=== PATIENT | female | born 1975 | race African-American/Black ===

== ENCOUNTER 2023-01-12 09:34 | Outpatient (AMB) | payer OTHER, SELFPAY ==
[2023-01-12 09:55] VITALS: BMI 29.0
--- NOTE | 2023-01-12 09:55 | MHC.OFFVIS ---
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 States she is in the . States her pain increase about 3 years ago due to prolong walking. States on her left side of her lower back she is having radiating pain to her Hamstring. Feels soreness and is triggered with prolong sitting and working out. Patient is currently doing P.T with little improvement. Allergies ibuprofen Adverse Reaction (Verified 01/12/23 09:57) ulcers [facility] HPI Comments History of Present Illness Details Per notes from [facility], patient may have had a left hamstring tear 3 years ago in [place]. Has the same pain now per patient, pointing to left proximal insertion. Tingling on right lower leg, usually when she is sitting. But she points to bilateral SI joint. When she lotions right thigh, feels numb, noted last 3 weeks ago. No bladder/bowel changes. Was on right boot for possible ankle sprain. She is in , has to work out, speed walks. Treatment done so far: NSAIDs therapy - last 3 weeks in ATI injection - trigger point for her back and shoulder area, in [place] Wears a knee sleeve - which seems to cause pain on back of her knee [facility] Medical History (Updated 01/12/23 @ 10:26 by Lexi Guallpa MD) Hamstring tear (Updated 01/12/23 @ 09:57 by CHRIS Ibrahim) Patient Tobacco Use Status: Never used Tobacco Current occupational status: employed Current occupation: rt hand / active in Review of Systems Const All systems reviewed & are unremarkable except as noted in HPI and below Physical Exam Vital Signs: BMI result Body Mass Index 29.0 Constitutional: Patient appears to be in no acute distress, well nourished and well developed. Patient was appropriately conversant and oriented. Good historian. MSK: No specific abnormalities found on inspection of the spine and all extremities. No pain with palpation over the lumbar area. Tender bilateral SI joints. Tender on left GT. Tender on left ischial tuberosity. Tender along the ITB band left. No obvious tear seen on hamstring. Lumbar ROM was full. Bilateral hip, knee and ankle ROM WNL. No ligamentous laxity or crepitance. No increased effusion. Straight-leg raising test negative. FABERE test positive left. Joaquim test is negative. Strength is 5/5 in all muscle groups tested. No increased tone noted. Neurological: Neurologic examination of the upper and lower extremities was nonfocal with intact sensation, muscle stretch reflexes and without focal motor deficits . Shepherd?s negative bilaterally. Babinski was down going bilaterally. Clonus was negative. Gait is non-antalgic without loss of balance. Patient was able to perform heel walk and toe walk. Results Reviewed Results Reviewed: X-ray done at [facility] reported preserved disc spaces and facet arthropathy. I reviewed records from the following: [facility] walk-in clinic Assessment & Plan Assessment & Plan (1) Sacroiliac joint dysfunction of both sides: Code(s): M53.3 - Sacrococcygeal disorders, not elsewhere classified (2) Trochanteric bursitis of left hip: Code(s): M70.62 - Trochanteric bursitis, left hip (3) Ischial bursitis of left side: Code(s): M70.72 - Other bursitis of hip, left hip (4) Hamstring tear: Code(s): S76.319A - Strain of muscle, fascia and tendon of the posterior muscle group at thigh level, unspecified thigh, initial encounter Plan Focal pain on SI joints, left GT and left ischial tuberosity, with referral pain on gluteus and ITB. No signs of current hamstring tear. Discussed with patient. Low suspicion for lumbar radiculopathy but will continue to evaluate/observe. Will refer her to Pain Management for possible bilateral SI joint injection under image guidance. We can do a left trochanteric injection here, will schedule for next week. We would consider future ischial tuberosity injection in the future, after the two above. Assessment and plan discussed with patient, and patient was agreeable. All questions were answered thoroughly. Lexi Guallpa MD, GUANAKO Board Certified, [place] Board of Physical Medicine and Rehabilitation (ABPMR) Board Certified, [place] Board of Electrodiagnostic Medicine (ABEM) Orders: Referrals Pain Management Referral M53.3 - Sacrococcygeal disorders, not elsewhere classified Coding Level of Care Code New Pt Level 4 (57672) Diagnoses Sacroiliac joint dysfunction of both sides M53.3 Trochanteric bursitis of left hip M70.62 Ischial bursitis of left side M70.72 Hamstring tear S76.156W
== END 2023-01-12 10:32 | disposition home or self-care (01) ==
PROVIDERS: PCP Physician Assistant; Visit Provider Physical Medicine & Rehabilitation
DX: M53.3 Sacrococcygeal disorders, not elsewhere classified (principal); M70.62 Trochanteric bursitis, left hip; M70.72 Other bursitis of hip, left hip; S76.319A Strain of muscle, fascia and tendon of the posterior muscle group at thigh level, unspecified thigh, initial encounter
CPT/HCPCS: 99204

== ENCOUNTER → 2023-01-12 09:34 | Outpatient (BNVA) | payer OTHER, SELFPAY | PROVIDERS: PCP Physician Assistant; Visit Provider Physical Medicine & Rehabilitation | DX: M53.3 Sacrococcygeal disorders, not elsewhere classified (principal); M70.62 Trochanteric bursitis, left hip; M70.72 Other bursitis of hip, left hip; Z56.82 Military deployment status; Z57.8 Occupational exposure to other risk factors | CPT/HCPCS: 99202 ==

== ENCOUNTER 2023-01-19 12:02 | Outpatient (AMB) | payer OTHER, SELFPAY ==
--- NOTE | 2023-01-19 12:04 | MHC.OFFVIS ---
Intake Vital Signs 01/19/23 12:04 Height 5 ft 6 in Intake Visit Reasons: ov- left hip injection Intake Note: Nancie is a 47 year old female who presents today for a left hip injection. Allergies ibuprofen Adverse Reaction (Verified 01/19/23 12:11) ulcers HPI HPI Comments History of Present Illness Details Here for scheduled left greater trochanter injection PFSH Medical History (Updated 01/12/23 @ 10:26 by Lexi Guallpa MD) Hamstring tear Social History (Updated 01/12/23 @ 09:57 by Diana Chaidez [facility]) Patient Tobacco Use Status: Never used Tobacco Current occupational status: employed Current occupation: rt hand / active in Office Procedures Joint Injection/Drain Joint Injection/Drain Details: Consent obtained. Patient lies on unaffected side with lower leg flexed and upper leg extended. Tender area over the greater trochanter is identified and marked. Area is cleansed with betadine solution. Using a [25] gauge needle, [3 ml] of 2% lidocaine is injected, with the needle perpendicular to center of tender area. Then, using a spinal needle, [40 mg] Kenalog is injected perpendicularly at center of tender area and slightly touching bone of greater trochanter. Patient tolerated procedure well without complications. Post-injection instructions given. Primary Site: other (Left greater trochanter) Injected: 40 mg of, Kenalog and with 3 mL of (2% lidocaine) Procedure: The patient tolerated the procedure well Coding 38850 - Large joint Procedure code (CPT) selection complete Assessment & Plan Assessment & Plan (1) Trochanteric bursitis of left hip: Code(s): M70.62 - Trochanteric bursitis, left hip Plan Patient tolerated procedure well. Post-injection instructions given. Await pain management referral for SI joint injection. Assessment and plan discussed with patient, and patient was agreeable. All questions were answered thoroughly. Follow-up after injection from pain management. Lexi Guallpa MD, GUANAKO Board Certified, [place] Board [employer] Physical Medicine and Rehabilitation (ABPMR) Board Certified, [place] Board of Electrodiagnostic Medicine (ABEM) Orders: Orders AMB Joint Injection/Aspiration Today M70.62 - Trochanteric bursitis, left hip Coding Level of Care Code Procedure Only Diagnoses Trochanteric bursitis of left hip M70.62 CPT Codes Coding - 96912 Large joint: 08991 - Large joint ([id number])
== END 2023-01-19 12:28 | disposition home or self-care (01) ==
PROVIDERS: PCP Physician Assistant; Visit Provider Physical Medicine & Rehabilitation
DX: M70.62 Trochanteric bursitis, left hip (principal)
CPT/HCPCS: 20610

== ENCOUNTER → 2023-01-19 12:02 | Outpatient (BNVA) | payer OTHER, SELFPAY | PROVIDERS: PCP Physician Assistant; Visit Provider Physical Medicine & Rehabilitation | DX: M70.62 Trochanteric bursitis, left hip (principal) | CPT/HCPCS: 20610; J3301 ==

== ENCOUNTER 2023-03-22 06:21 | Outpatient (REF) | payer OTHER, SELFPAY ==
--- NOTE | ~2023-03-22 | FL_ITS ---
EXAMINATION: XR FLUOROSCOPY WITH IMAGES CLINICAL INFORMATION: Sacrococcygeal disorders. COMPARISON: None available. TECHNIQUE: Fluoroscopy Supervised By: Hui Almonte APRN CNP Fluoroscopy Time: 0.2 minutes. Cumulative Dose: 2.32 mGy. DAP: 0.0404 Gycm2. Images: 2. FINDINGS: There are 2 digital images obtained with contrast overlying the SI joints for pain management. No lytic process seen. FL/FL guidance in treatment room IMPRESSION: Fluoroscopy was provided to referring physician for SI joint pain management.
== END 2023-03-22 06:22 | disposition home or self-care (01) ==
LOC: CF 06:21
PROVIDERS: Visit Provider Anesthesiology
DX: M53.3 Sacrococcygeal disorders, not elsewhere classified (principal)
CPT/HCPCS: 27096; J2795; Q9967

== ENCOUNTER 2023-03-22 12:59 | Outpatient (AMB) | payer OTHER, SELFPAY ==
--- NOTE | 2023-03-22 12:57 | MHC.OFFVIS ---
Intake Vital Signs 03/22/23 13:04 03/22/23 13:05 Height 5 ft 6 in 5 ft 6 in Weight 180 lb 180 lb BMI 29.0 29.0 BP 142/90 H 122/90 H Blood Pressure Location Lt brachial Lt brachial Position Sitting Sitting Respiration 18 18 Pulse 92 80 Pulse Source Pulse Oximeter Pulse Oximeter Pulse Oximetry (%) 100 100 Oxygen Delivery Method Room Air Room Air Comment pre-op post-op Intake Visit Reasons: BILATERAL DIAGNOSTIC SIJ INJECTIONS Allergies ibuprofen Adverse Reaction (Verified 03/22/23 13:05) ulcers [facility] Medical History (Updated 01/12/23 @ 10:26 by Lexi Guallpa MD) Hamstring tear Social History (Updated 01/12/23 @ 09:57 by CHRIS Ibrahim) Patient Tobacco Use Status: Never used Tobacco Current occupational status: employed Current occupation: rt hand / active in Physical Exam Vital Signs: Last Vital Signs Pulse 80 03/22/23 13:05 Resp 18 03/22/23 13:05 BP 122/90 H 03/22/23 13:05 Pulse Ox 100 03/22/23 13:05 Oxygen Delivery Method Room Air 03/22/23 13:05 BMI result Body Mass Index 29.0 Assessment & Plan Assessment & Plan (1) Sacroiliac joint dysfunction of both sides: Code(s): M53.3 - Sacrococcygeal disorders, not elsewhere classified Plan: Bilateral diagnostic sacroiliac joint injection. Informed consent was explained thoroughly to the patient. All questions about benefits and risks for the procedure were answered. Patient came to the operating room and was positioned prone on the operating table with the pillow under the pelvis. Time out was performed delineating name and of the patient, allergies and the nature of the procedure. The lower back and buttocks of the patient were prepped with ChloraPrep prepped and draped with sterile utility towels. C-arm was brought over the operating field and sq picture of patient's pelvis was demonstrated on the screen. For the right joint tilting C-arm contralateral to the site of the joint the most posterior portion of the joints was superimposed with anterior silhouette of the joint. Skin was injected in the projection of the joint slightly medial to the location of the joint with 25 gauge 1/2 inch needle using local lidocaine 2% .After that 22 gauge 3 and 1/2 inch needle was driven to the right joint in tunnel vision fashion. When needle entered the joint capsule injection of the contrast was performed demonstrating intra-articular and minimally periarticular spread of the contrast. After that 4 cc. of ropivacaine 0.5% was injected into the joint. Upon completion of the injections the needle was removed Sterile dressing was applied. Upon completion of the injection patient was taken outside of the operating room to the recovery room where recovered uneventfully. Orders: Orders FL guidance in treatment room Today M53.3 - Sacrococcygeal disorders, not elsewhere classified Coding Level of Care Code Procedure Only Diagnoses Sacroiliac joint dysfunction of both sides M53.3
[2023-03-22 13:04] VITALS: BP 142/90; PULSE 92; RESP 18; O2SAT 100; BMI 29.0
[2023-03-22 13:05] VITALS: BP 122/90; PULSE 80; RESP 18; O2SAT 100; BMI 29.0
== END 2023-03-22 14:00 | disposition home or self-care (01) ==
LOC: HO.PMCPRC 12:59
PROVIDERS: PCP Physician Assistant; Visit Provider Anesthesiology
DX: M53.3 Sacrococcygeal disorders, not elsewhere classified (principal)
CPT/HCPCS: 27096

== ENCOUNTER 2023-03-28 13:14 | Outpatient (AMB) | payer OTHER, SELFPAY ==
--- NOTE | 2023-03-28 13:29 | MHC.OFFVIS ---
Intake Vital Signs 03/28/23 13:38 Height 5 ft 6 in Weight 191 lb 8 oz BMI 30.9 BP 142/86 H Blood Pressure Location Lt brachial Position Sitting Respiration 17 Pulse 82 Pulse Source Pulse Oximeter Pulse Oximetry (%) 99 Oxygen Delivery Method Room Air Intake Visit Reasons: BILATERAL DIAGNOSTIC SIJ INJECTIONS/03/22/23 Intake Note: Patient comes in for post-op appointment. Reports pain 04/30. Allergies ibuprofen Adverse Reaction (Verified 03/28/23 13:39) ulcers HPI HPI Comments History of Present Illness Details Nancie is very pleasant 47 years old female who presents in my office with complains on 3 similarly separate pain generators. She complains on pain across the lower back which was diagnosed at sacroiliitis in the office of Dr. Tim Nieves. 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 She reports that she can not sleep normally because of her pain but she can not do activities of daily living she can not take care of herself and she can not function normally. She reports that she is working full-time. She is self mobile. The pain is aggravated by walking. She reports in terms of tissue damage her pain is dull sore hurting aching heavy tight squeezing tearing sensation. She had physical therapy DecemberJanuary 2023 without pain relief she had massage therapy December 2022 without pain relief she had occupational therapy 2022 without pain relief. She went for bilateral sacroiliac joint injection and results for the sacroiliac joint pain is quite impressive. She reported that she had 2 days of complete absence of the pain in the projection of the sacroiliac joints. However the patient stated today that sacroiliac joint pain is not the major pain generator for her. She reported to me that right subcostal pain is more important for her because it is aching nagging pain and it prevents her from performing her duties. Past medical history is denied, no past surgical history, she denies smoking cigarettes occasionally drinks alcohol denies caffeinated beverages denies recreational drugs. PENDING SALE TO [facility] Medical History (Updated 03/28/23 @ 14:07 by Mark Rodriguez MD) Hamstring tear Social History (Updated 01/12/23 @ 09:57 by CHRIS Ibrahim) Patient Tobacco Use Status: Never used Tobacco Current occupational status: employed Current occupation: rt hand / active in Review of Systems Const Reports no additional complaints Card Reports no additional complaints Resp Reports no additional complaints GI Reports no additional complaints Reports no additional complaints Musc Reports as per HPI Neuro Reports no additional complaints Psych Reports no additional complaints Physical Exam Vital Signs: Last Vital Signs Pulse 82 03/28/23 13:38 Resp 17 03/28/23 13:38 BP 142/86 H 03/28/23 13:38 Pulse Ox 99 03/28/23 13:38 Oxygen Delivery Method Room Air 03/28/23 13:38 BMI result Body Mass Index 30.9 Constitutional: Patient appears to be in no acute distress, well nourished and well developed. Patient was appropriately conversant and oriented. Good historian. MSK: Tenderness on palpation in projection of the right subcostal area. No specific abnormalities found on inspection of the spine and all extremities. No pain with palpation over the lumbar area. Tender bilateral SI joints. Tender on left GT. Tender on left ischial tuberosity. Tender along the ITB band left. No obvious tear seen on hamstring. Lumbar ROM was full. Bilateral hip, knee and ankle ROM WNL. No ligamentous laxity or crepitance. No increased effusion. Straight-leg raising test negative. FABERE test positive left. Joaquim test is negative. Strength is 5/5 in all muscle groups tested. No increased tone noted. Neurological: Neurologic examination of the upper and lower extremities was nonfocal with intact sensation, muscle stretch reflexes and without focal motor deficits . Shepherd?s negative bilaterally. Babinski was down going bilaterally. Clonus was negative. Gait is non-antalgic without loss of balance. Patient was able to perform heel walk and toe walk. Assessment & Plan Assessment & Plan (1) Hamstring tear: Code(s): S76.319A - Strain of muscle, fascia and tendon of the posterior muscle group at thigh level, unspecified thigh, initial encounter (2) Sacroiliac joint dysfunction of both sides: Code(s): M53.3 - Sacrococcygeal disorders, not elsewhere classified (3) Sacroiliitis: Code(s): M46.1 - Sacroiliitis, not elsewhere classified (4) Intercostal neuralgia: Code(s): G58.8 - Other specified mononeuropathies Plan We agreed that I will schedule this patient for rib 11 rib 12 intercostal/subcostal injection diagnostic on the right. Next appointment will be scheduled after the diagnostic procedure. As of her sacroiliac joint injections the results are excellent however the patient reports that this is not her major pain generators. To not to leave any stones on turned I explained just in case 2 the patient sacroiliac joint steroid injections, sacroiliac joint stabilization with fusion and sacroiliac joint innervation stimulation Curonix, The patient is not sure which possible procedures she would be willing to accept as of the regard of treatment of sacroiliac joint conditions. Coding Level of Care Code New Pt Level 3 (70658) Diagnoses Hamstring tear S76.319A Sacroiliac joint dysfunction of both sides M53.3 Sacroiliitis M46.1 Intercostal neuralgia G58.8
[2023-03-28 13:38] VITALS: BP 142/86; PULSE 82; RESP 17; O2SAT 99; BMI 30.9
== END 2023-03-28 14:01 | disposition home or self-care (01) ==
PROVIDERS: PCP Physician Assistant; Visit Provider Anesthesiology
DX: S76.319A Strain of muscle, fascia and tendon of the posterior muscle group at thigh level, unspecified thigh, initial encounter (principal); M53.3 Sacrococcygeal disorders, not elsewhere classified; M46.1 Sacroiliitis, not elsewhere classified; G58.8 Other specified mononeuropathies
CPT/HCPCS: 99203

== ENCOUNTER → 2023-03-28 13:14 | Outpatient (BNVA) | payer OTHER, SELFPAY | PROVIDERS: PCP Physician Assistant; Visit Provider Anesthesiology | DX: M46.1 Sacroiliitis, not elsewhere classified (principal); M53.3 Sacrococcygeal disorders, not elsewhere classified; G58.8 Other specified mononeuropathies; S76.319A Strain of muscle, fascia and tendon of the posterior muscle group at thigh level, unspecified thigh, initial encounter | CPT/HCPCS: 99202 ==

== ENCOUNTER 2023-09-02 09:56 | Outpatient (AMB) | payer OTHER, SELFPAY ==
--- NOTE | 2023-09-02 09:58 | MHC.OFFVIS ---
Intake Visit Reasons: OV- LT hip pain f/u last INJ 01/19/23 Intake Note: Nancie is a 48 year old female who presents to the office today for LT hip pain f/u. Last INJ 01/19/23. Pt states last injection didnt give her any relief. She states she is still having pain in her hip it is a 6/7 on the 1-10 pain scale. Allergies ibuprofen Adverse Reaction (Verified 09/02/23 09:58) ulcers Medication List - Last Reconciled 09/02/23 by Lexi Guallpa MD valacyclovir 500 mg PO BID HPI Comments Details: Initial consulte notes: Per notes from [facility], patient may have had a left hamstring tear 3 years ago in [place]. Has the same pain now per patient, pointing to left proximal insertion. Tingling on right lower leg, usually when she is sitting. But she points to bilateral SI joint. When she lotions right thigh, feels numb, noted last 3 weeks ago. No bladder/bowel changes. Was on right boot for possible ankle sprain. She is in , has to work out, speed walks. Treatment done prior to first seeing me: NSAIDs therapy - last 3 weeks in ATI injection - trigger point for her back and shoulder area, in [place] Wears a knee sleeve - which seems to cause pain on back of her knee I did left GT injection 01/19/23. No relief at all. She also went to Pain Management, had bilateral SI joint diagnostic injections 03/22/23. On her follow up, Dr. Rodriguez had offered options for therapeutic SI injection or fusion or pain stimulator. Patient had not decided or scheduled any. She expresses frustration that she only received diagnostic injections and not getting appointments sooner. Since then, she does not have the pinched sensation on both SI joints anymore. She continues to have left lateral hip area that goes to groin area/front thigh. Despite walking, she does not have the severe pain on the hamstrings anymore. No lower back pain. No numbness on leg. Different issue of left big toe pain. 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 No swelling. No ankle pain. No numbness. Does not think it was related to wearing her boots. History of angelika renteria, left knee, s/p surgery 2001. [facility] Medical History (Updated 09/02/23 @ 10:27 by Lexi Guallpa MD) Hamstring tear Social History (Updated 01/12/23 @ 09:57 by Diana Chaidez CCM) Patient Tobacco Use Status: Never used Tobacco Current occupational status: employed Current occupation: rt hand / active in Physical Exam Constitutional: Patient appears to be in no acute distress, well nourished and well developed. Patient was appropriately conversant and oriented. Good historian. MSK: No specific abnormalities found on inspection of the spine and all extremities. No pain with palpation over the lumbar area. SI joints and GT are not tender today. Difficulty getting up, bending forward and lying down in the bed, indicating pain on left hip and groin. Straight-leg raising test negative. FABERE test positive left hip and groin pain. Tender on the bone, which I think is the left MTP joint. That areas not more warm or red or swollen compared to the right. Does not appear to be a bunion. EHL strength is strong. No footdrop. No tenderness on plantar fascia, Achillis tendon, or ankle. No ankle instability. Strength is 5/5 in all muscle groups tested. No increased tone noted. Neurological: Neurologic examination of the upper and lower extremities was nonfocal with intact sensation, muscle stretch reflexes and without focal motor deficits . Shepherd?s negative bilaterally. Babinski was down going bilaterally. Clonus was negative. Gait is antalgic without loss of balance. Results Reviewed Results Reviewed: X-ray lumbar done at [facility] reported preserved disc spaces and facet arthropathy. I reviewed records from the following: Pain management Assessment & Plan Assessment & Plan (1) Hip arthritis: Code(s): M16.10 - Unilateral primary osteoarthritis, unspecified hip Category: Medical (2) Pain of left great toe: Code(s): M79.675 - Pain in left toe(s) Category: Medical Plan She no longer has focal tenderness over trochanters or SI joints. But she still has pain on left hip/groin area, appears to be mechanical. Given radiation to the left groin, I suspect this is left hip arthritis. Obtained x-rays today. We reviewed x-ray films. Question loss of joint space. Acetabular spur noted on lateral aspect. Await official reading. This could be causing some type of hip impingement. We discussed possible intra-articular hip injection. Patient agreeable. We will refer her back to pain management Dr. Rodriguez for the injection. Separate issue of left big toe pain. No signs of synovitis or inflammation. No signs of injury. Obtain x-rays as well, ruling out arthritis. Spur noted on left MTP joint. Await official reading. Given diffuse arthritic joints, we will rule out inflammatory etiology. Sending patient for labs, TYRESE and RF. We will consider referral to Rheumatology depending on results. Assessment and plan discussed with patient, and patient was agreeable. All questions were answered thoroughly. Follow up after hip injection. Lexi Guallpa MD, GUANAKO Board Certified, [place] Board [employer] Physical Medicine and Rehabilitation (ABPMR) Board Certified, [place] Board [employer] Electrodiagnostic Medicine (ABEM) Orders: Orders XR foot LT min 3V Today M79.675 - Pain in left toe(s) Rheumatoid Factor Today M16.10 - Unilateral primary osteoarthritis, unspecified hip, M79.675 - Pain in left toe(s) TYRESE Reflex Titer and Pattern Today M16.10 - Unilateral primary osteoarthritis, unspecified hip, M79.675 - Pain in left toe(s) XR hip LT min 2V Today M79.675 - Pain in left toe(s) Referrals Pain Management Referral M16.10 - Unilateral primary osteoarthritis, unspecified hip Coding Level of Care Code Est Pt Level 4 (55910) Diagnoses Hip arthritis M16.10 Pain of left great toe M79.675
== END 2023-09-02 11:05 | disposition home or self-care (01) ==
PROVIDERS: PCP Physician Assistant; Visit Provider Physical Medicine & Rehabilitation
DX: M16.10 Unilateral primary osteoarthritis, unspecified hip (principal); M79.675 Pain in left toe(s)
CPT/HCPCS: 99213

== ENCOUNTER 2023-09-02 09:56 | Outpatient (REF) | payer OTHER, SELFPAY ==
--- NOTE | ~2023-09-02 | XR_ITS ---
EXAMINATION: XR FOOT, LEFT CLINICAL INFORMATION: Left toe pain COMPARISON: None available. TECHNIQUE: AP, lateral, and oblique views of the left foot. FINDINGS: The bones and soft tissues are normal. No fracture. Alignment is anatomic. There is degenerative disease and osteophyte formation at the first metatarsal-phalangeal joint. XR/XR foot LT min 3V IMPRESSION: First MTP joint arthritis.
--- NOTE | ~2023-09-02 | XR_ITS ---
EXAMINATION: XR HIP, LEFT CLINICAL INFORMATION: Left hip pain. COMPARISON: None available. TECHNIQUE: AP and frog-leg lateral views of the left hip. FINDINGS: Mild osteoarthritis of the left hip with marginal osteophytes and mild cephalad joint space narrowing. No fracture or malalignment. Additional mild osteoarthrosis is present in the left SI joint and pubic symphysis. Bone mineralization is normal. Imaged portion of the lumbar spine is unremarkable. Soft tissues are normal in appearance. XR/XR hip LT min 2V IMPRESSION: Mild osteoarthritis in the left hip and SI joint. No acute osseous findings.
== END 2023-09-02 09:57 | disposition home or self-care (01) ==
LOC: HO.HOSX 09:56
PROVIDERS: PCP Physician Assistant; Visit Provider Physical Medicine & Rehabilitation
DX: M79.675 Pain in left toe(s) (principal); M16.12 Unilateral primary osteoarthritis, left hip
CPT/HCPCS: 73502; 73630; 99212

== ENCOUNTER 2023-09-02 11:10 | Outpatient (REF) | payer OTHER, SELFPAY ==
[2023-09-02 13:49] LABS: Rheumatoid Factor < 13.0 IU/mL (<15.0)
[2023-09-14 10:38] LABS: Anti Nuclear Antibody Pattern Nuclear, Homogeneous; Anti Nuclear Antibody Screen POSITIVE (NEGATIVE)
== END 2023-09-02 11:11 | disposition home or self-care (01) ==
LOC: HO.10HDL 11:10
PROVIDERS: Visit Provider Physical Medicine & Rehabilitation
DX: M16.10 Unilateral primary osteoarthritis, unspecified hip (principal); M79.675 Pain in left toe(s)
CPT/HCPCS: 36415; 86038; 86039; 86431

== ENCOUNTER 2023-12-29 11:00 | Outpatient (AMB) | payer OTHER, SELFPAY ==
--- NOTE | 2023-12-29 11:10 | MHC.OFFVIS ---
Vital Signs 12/29/23 11:16 Height 5 ft 6 in Weight 194 lb 0.108 oz BMI 31.3 BP 112/80 Blood Pressure Location Rt brachial Position Sitting Pulse 89 Pulse Source Pulse Oximeter Pulse Oximetry (%) 98 Oxygen Delivery Method Room Air Intake Visit Reasons: Abnormal Lab/CM Intake Note: Patient presents for abnormal lab. Allergies ibuprofen Adverse Reaction (Verified 12/29/23 11:14) ulcers Medication List - Last Reconciled 12/29/23 by Yair Hankins MD valacyclovir 500 mg PO BID HPI Comments Details: This is a 48-year-old female who presents for evaluation of a positive TYRESE. This was in the context of multiple joint pain. Patient states that about 10 years ago she was having pain and stiffness in her left big toe. It was x-rayed and she was told that she has arthritis. She does not recall any specific treatment. She also states that her left knee cracks, her back cracks. She gets back pain as well as left hip pain. She was evaluated by pain management and had injections with some relief. She states that she had surgery for left hand carpal tunnel and left cubital tunnel release. She states that she has been having similar symptoms involving her right hand now. She denies any unintentional weight loss. She is actually gaining weight. Denies any unexplained fevers, denies rashes or significant hair loss. She denies any oral ulcers. Denies any morning stiffness or swelling of her joints. She is unaware of any family history of an autoimmune rheumatic disease. Patient never attempted and has never been . [facility] Medical History Hamstring tear Surgical History History of carpal tunnel surgery of left wrist History of partial hysterectomy History of breast surgery History of eye surgery History of knee surgery Family History Father History of heart failure Social History Household Members: Family Housing: House Alcohol intake: current Comment: Occassionally Patient Tobacco Use Status: Former Tobacco user Years Smoked: 10 Current occupational status: employed Current occupation: rt hand / active in Female Reproductive History Menstrual Total pregnancies: 0 Review of Systems Const Denies fever(s) and Denies weight loss Musc Reports back pain, Reports deformity, Reports arthralgias, Denies joint swelling and Reports stiffness Skin/Breast Denies alopecia, Denies photosensitivity and Denies rash Physical Exam Vital Signs: Last Vital Signs Pulse 89 12/29/23 11:16 BP 112/80 12/29/23 11:16 Pulse Ox 98 12/29/23 11:16 Oxygen Delivery Method Room Air 12/29/23 11:16 BMI result Body Mass Index 31.3 Const General: cooperative, healthy appearing and comfortable Nutritional Appearance: obese Orientation/consciousness: patient oriented x3 Limitations: no limitations HEENT Head: Yes normocephalic and Yes atraumatic Mouth: moist mucous membranes Resp Effort & Inspection: normal respiratory effort and able to speak in complete sentences Auscultation: clear to auscultation bilaterally Cardio Rate: regular rate Rhythm: regular rhythm Skin General skin exam: no rashes or lesions noted Neuro General: patient oriented x3 Extrem Other: Mild osteoarthritic changes of both hands with some Heberden's nodes. Not tender Bilateral bunions Left foot bunion slightly tender to palpation and limited dorsiflexion Negative MTP squeeze test bilaterally Normal nailfold capillaroscopy Assessment & Plan Assessment & Plan (1) Positive TYRESE (antinuclear antibody): Code(s): R76.8 - Other specified abnormal immunological findings in serum Category: Medical Plan: This is a 48-year-old female who presents for evaluation of a positive TYRESE. Upon evaluation I do not see any signs suggestive of an autoimmune rheumatic disease. Patient essentially has a negative review of systems. Discussed with patient that about 20% of the population can have a positive TYRESE with no underlying autoimmune rheumatic disease. She does have osteoarthritis of involving multiple joints including her hands, back, both feet. Discussed with patient the symptoms and signs that are suggestive of an autoimmune rheumatic disease. Advised patient to return as needed. (2) Numbness and tingling in right hand: Code(s): R20.0 - Anesthesia of skin; R20.2 - Paresthesia of skin Category: Medical Plan: Ordered right upper extremity EMG/NCV to evaluate for CTS Plan I spent 30 minutes reviewing patient's chart, evaluating patient, ordering diagnostic workup, counseling patient and documenting in the chart Orders: Orders NE electromyogram (EMG) Today R20.0 - Anesthesia of skin, R20.2 - Paresthesia of skin Coding Level of Care Code Est Pt Level 3 (99750) Diagnoses Positive TYRESE (antinuclear antibody) R76.8 Numbness and tingling in right hand R20.0; R20.2
[2023-12-29 11:16] VITALS: BP 112/80; PULSE 89; O2SAT 98; BMI 31.3
== END 2023-12-29 11:40 | disposition home or self-care (01) ==
LOC: HO.RHE 11:01
PROVIDERS: PCP Physician Assistant; Visit Provider Student in an Organized Health Care Education/Training Program
DX: R76.8 Other specified abnormal immunological findings in serum (principal); R20.0 Anesthesia of skin; R20.2 Paresthesia of skin
CPT/HCPCS: 99213

== ENCOUNTER → 2023-12-29 11:00 | Outpatient (BNVA) | payer OTHER, SELFPAY | PROVIDERS: PCP Physician Assistant; Visit Provider Student in an Organized Health Care Education/Training Program | DX: M25.532 Pain in left wrist (principal); S60.562A Insect bite (nonvenomous) of left hand, initial encounter; R76.8 Other specified abnormal immunological findings in serum; R20.0 Anesthesia of skin; R20.2 Paresthesia of skin; W57.XXXA Bitten or stung by nonvenomous insect and other nonvenomous arthropods, initial encounter; Y93.9 Activity, unspecified; Y92.9 Unspecified place or not applicable; Y99.9 Unspecified external cause status | CPT/HCPCS: 99202; 99212 ==

== ENCOUNTER 2023-12-29 12:05 | Outpatient (AMB) | payer OTHER, SELFPAY ==
--- NOTE | 2023-12-29 12:43 | MHC.OFFWIV ---
Intake Vital Signs 12/29/23 12:44 Height 5 ft 6 in Weight 195 lb BMI 31.5 BP 140/90 H Blood Pressure Location Lt brachial Position Sitting Pulse 74 Pulse Source Pulse Oximeter Pulse Oximetry (%) 98 Oxygen Delivery Method Room Air Intake Visit Reasons: EP LT wrist pain Intake Note: Patient here for left wrist pain that has been present since tuesday Patient Tobacco Use Status: Former Tobacco user Allergies ibuprofen Adverse Reaction (Verified 12/29/23 12:45) ulcers Do you need a note to return to daycare/school/sports/work: No HPI HPI Comments History of Present Illness Details Patient is a 48-year-old female complaining of left wrist pain x4 days. She tells me she has had carpal tunnel surgery on the wrist previously. She tells me she does not work and is not doing any repetitive motions with that hand, she does work out and does pushups and other things using her wrist but it has never bothered her in the past. She tells me she thinks that she could have sustained a bug bite or some kind of bite because it is a little bit of redness at the base of her wrist and it is tender. But she does not see an obvious bite juanita. She denies any recent fevers, rashes or tick bites [facility] Medical History Hamstring tear Surgical History History of carpal tunnel surgery of left wrist History of partial hysterectomy History of breast surgery History of eye surgery History of knee surgery Family History Father History of heart failure Social History Household Members: Family Housing: House Alcohol intake: current Comment: Occassionally Patient Tobacco Use Status: Former Tobacco user Years Smoked: 10 Current occupational status: employed Current occupation: rt hand / active in Review of Systems Const All systems reviewed & are unremarkable except as noted in HPI and below Physical Exam Vital Signs: Last Vital Signs Pulse 74 12/29/23 12:44 BP 140/90 H 12/29/23 12:44 Pulse Ox 98 12/29/23 12:44 Oxygen Delivery Method Room Air 12/29/23 12:44 BMI result Body Mass Index 31.5 Const General: cooperative, healthy appearing, comfortable, no acute distress and well developed Orientation/consciousness: patient oriented x3 Limitations: no limitations HEENT Head: Yes normal to inspection Neck Neck: Yes normal visual inspection and Yes supple Neuro General: patient oriented x3 Extrem Left upper extremity: wrist distal medial Details: normal to inspection, tenderness Location: of the distal ulna, normal ROM, normal vascular exam, radial pulse present, ulnar pulse present and Tinel's negative; no swelling, no abrasions, no lacerations, no ecchymosis, no foreign bodies, no penetrating wound and Phalen's positive Assessment & Plan Assessment & Plan (1) Bug bite of left hand: Code(s): S60.562A - Insect bite (nonvenomous) of left hand, initial encounter; W57.XXXA - Bitten or stung by nonvenomous insect and other nonvenomous arthropods, initial encounter Qualifiers: Encounter type: initial encounter Qualified Code(s): S60.562A - Insect bite (nonvenomous) of left hand, initial encounter; W57.XXXA - Bitten or stung by nonvenomous insect and other nonvenomous arthropods, initial encounter Plan: Unclear if this was a bug bite that is causing her pain as she did have a positive Phalen's test however she has already had carpal tunnel surgery, the bite could be aggravating it. It will likely feel better in a few days, if it does not, she should take the wrist brace and use it at night and follow up with her hand surgeon (2) Wrist pain: Code(s): M25.539 - Pain in unspecified wrist Qualifiers: Laterality: left Qualified Code(s): M25.532 - Pain in left wrist Plan: See above Plan See above Coding Level of Care Code New Pt Level 3 (86817) Diagnoses Insect bite of left hand, initial encounter S60.562A; W57.XXXA Encounter type: initial encounter Left wrist pain M25.532 Laterality: left
[2023-12-29 12:44] VITALS: BP 140/90; PULSE 74; O2SAT 98; BMI 31.5
== END 2023-12-29 14:03 | disposition home or self-care (01) ==
PROVIDERS: PCP Physician Assistant; Visit Provider Physician Assistant
DX: S60.562A Insect bite (nonvenomous) of left hand, initial encounter (principal); W57.XXXA Bitten or stung by nonvenomous insect and other nonvenomous arthropods, initial encounter; M25.532 Pain in left wrist

== ENCOUNTER 2024-01-25 08:56 | Outpatient (REF) | payer OTHER, SELFPAY ==
--- NOTE | 2024-01-25 08:58 | EMG_ITS ---
Chief complaint: Right hand pain/numbness Reason for referral: Evaluate for Carpal Tunnel Syndrome Referred by: Dr. Hankins Procedure done: Right upper extremity NCS/EMG Precautions and/or limitations: None The limb temperature was monitored continuously and remained between 32-36 degrees C during the performance of the NCS. Nerve Conduction Studies Anti Sensory Summary Table ?Stim Site NR Onset (ms) Norm Onset (ms) Peak (ms) Norm Peak (ms) O-P Amp (?V) Norm O-P Amp Site1 Site2 Delta-0 (ms) Dist (cm) Jorge (m/s) Norm Jorge (m/s) Right Median Anti Sensory (2nd Digit) Wrist ? 2.6 3.4 <3.6 36.9 >10 Wrist 2nd Digit 2.6 14.0 54 Right Ulnar Anti Sensory (5th Digit) Wrist ? 2.3 3.1 <3.7 46.2 >15.0 Wrist 5th Digit 2.3 14.0 61 Motor Summary Table ?Stim Site NR Onset (ms) Norm Onset (ms) O-P Amp (mV) Norm O-P Amp iAmp (mV) Amp (1st) (%) Site1 Site2 Delta-0 (ms) Dist (cm) Jorge (m/s) Norm Jorge (m/s) Right Median Motor (Abd Poll Brev) Wrist ? 3.3 <3.9 15.9 >4.5 19.8 100.0 Elbow Wrist 3.9 20.0 51 >45 Elbow ? 7.2 13.7 17.3 86.2 Right Ulnar Motor (Abd Dig Minimi) Wrist ? 2.6 <3.0 10.7 >5 13.8 100.0 B Elbow Wrist 3.6 23.0 64 >45 B Elbow ? 6.2 11.7 14.9 109.3 A Elbow B Elbow 1.1 10.0 91 >45 A Elbow ? 7.3 11.6 14.7 108.4 Comparison Summary Table ?Stim Site NR Peak (ms) Norm Peak (ms) P-T Amp (?V) Site1 Site2 Delta-P (ms) Norm Delta (ms) Right Median/Radial Dig I Comparison (Digit 1 - 10cm) Median ? 2.9 <2.9 103.3 Median Radial 0.0 Radial ? 2.9 <2.8 10.3 EMG ?Side Muscle Nerve Root Ins Act Fibs Psw Amp Dur Poly Recrt Int Pat Comment Right 1stDorInt Ulnar C8-T1 Nml Nml Nml Nml Nml 0 Nml Complete Right FlexCarRad Median C6-7 Nml Nml Nml Nml Nml 0 Nml Complete Right Biceps Musculocut C5-6 Nml Nml Nml Nml Nml 0 Nml Complete Right Triceps Radial C6-7-8 Nml Nml Nml Nml Nml 0 Nml Complete Right Deltoid Axillary C5-6 Nml Nml Nml Nml Nml 0 Nml Complete FINDINGS: All motor and sensory nerves tested showed normal latencies, amplitudes and conduction velocities. Concentric needle EMG was performed in selected muscles of the right upper extremity. Study did not reveal signs of electric abnormalities as shown in the table above. IMPRESSION: 1. This is a normal study. 2. There is no electrodiagnostic evidence for median neuropathy, ulnar neuropathy, brachial plexopathy, or cervical radiculopathy. Thank you for your kind referral. Lexi Guallpa MD, GUANAKO Board Certified, [place] [employer] and [employer] (ABPMR) Board Certified, [place] Board [employer] Electro[employer] (ABEM) CODIN [id number] MTDD
--- OUTSIDE RECORDS SUMMARY | 2024-01-31 16:37 | XMS_ITS | Continuity of Care Document ---
Author Name [facility] Organization [facility] Care Team Providers Care Chandelier Maker Name Role Phone [facility] Unavailable Unavailable Problems Combined list of problems from Department of Defense and Veterans Affairs facilities. It does not include entries that were removed or entered in error. Problem Status Onset Date Problem Type Date of Resolution Comments Source Encounter for examination for admission to educational institution Active [address] [place] [address] Knee pain Active Condition [facility] Wrist pain Active Condition [facility] Breast neoplasm screening status Active Condition [facility] Cancer cervix screening status Active Condition [facility] Gastroesophageal reflux disease with hiatal hernia Active Condition [facility] Genital herpes simplex type 2 Active Condition [facility] H/O: peptic ulcer [facility] History of polyp of colon Active Condition [facility] Low back pain Active Condition 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 [facility] location of accident - industrial premises Inactive Condition Do[facility] a fall due to slipping, tripping, or stumbling Inactive Condition [facility] chest wall contusion with intact skin surface left Inactive Condition Do[facility] contusion with intact skin surface - left scapular region Inactive Condition [facility] contusion with intact skin surface - left deltoid region Inactive Condition Do[facility] contusion with intact skin surface left upper arm Inactive Condition DoD visit for: occupational health / fitness exam Active Condition DoD past medical history reported by patient Active Condition DoD visit for: ears / hearing exam Active Condition DoD visit for: pre-employment physical Active Condition DoD Medications Combined list of outpatient medications from Department of Defense and Veterans Affairs facilities.Medications provided include 1) outpatient medications from the last 15 months, and 2) patient-reported medications. Medication Details Route Status Patient Instructions Prescription Expires Prescription Number Last Dispense Date Ordering Provider Order Date Order Qty Source AMLODIPINE BESYLATE (amlodipine besylate), 2.5 MG, TABLET, ORAL, [facility], 90 ea. BOTTLE Active [id number] 2023 30 Pharmac y Data Transac tion Service Facilit y azelastine 0.05% ophthalmic solution azelasti ne 0.05% ophthalm ic solution Start Date: 08/22/18 Status: Ordered Ordered No Facilit y Access DICLOFENAC SODIUM (DICLOFENAC SODIUM), 50MG, TABLET DR, ORAL, [place] TECH, 100 ea. BOTTLE Active [id number] 2023 60 Pharmac y Data Transac tion Service Facilit y FLUCELVAX QUAD 8340-5078 (flu vaccine quad 4653-0256(6 month and older)cell derived/PF) , 60MCG/.5ML, SYRINGE, INTRAMUSC, SEQIRUS[employer] INC[employer] .5 ml SYRINGE Active [id number] 2023 0.5 Pharmac y Data Transac tion Service Facilit y FLUZONE QUAD 9686-9906 (influenza virus vaccine quadrival 5963-8942(6 mos and up)/PF), 60MCG/.5ML, FLUZONE QUAD 0 (influen za virus vaccine quadriva l 2018- 0(6 mos and up)/PF), 60MCG/.5 ML, Start Date: 12/01/18 Status: Ordered Ordered No Facilit y Access HYDROCODONE -ACETAMINOP HEN (HYDROCODON E/ACETAMINO PHEN), 5MG-325MG, TABLET, ORAL, AMNEAL PHARMACE, 10 HYDROCOD ONE-ACET AMINOPHE N (HYDROCO DONE/URSULA TAMINOPH EN), 5MG-325M G, TABLET, ORAL, AMNEAL PHARMACE , 10 Start Date: 10/08/18 Status: Ordered Ordered No Facilit y Access lidocaine 5% topical film lidocain e 5% topical film Start Date: 08/29/19 Status: Ordered Ordered No Facilit y Access meloxicam 15 mg oral tablet meloxica m 15 mg oral tablet Start Date: 03/05/19 Status: Ordered Ordered No Facilit y Access methylPREDN ISolone 4 mg oral tablet methylPR EDNISolo ne 4 mg oral tablet Start Date: 03/03/19 Status: Ordered Ordered No Facilit y Access OXYCODONE-A CETAMINOPHE N (OXYCODONE HCL/ACETAMI NOPHEN), 5MG-325MG, TABLET, ORAL, MALLINKRT PHARM, 50 OXYCODON E-ACETAM INOPHEN (OXYCODO NE HCL/ACET AMINOPHE N), 5MG-325M G, TABLET, ORAL, MALLINKR T PHARM, 50 Start Date: 07/13/19 Status: Ordered Ordered No Facilit y Access tobramycin- dexamethaso ne 0.3%-0.1% ophthalmic suspension tobramyc in-dexam ethasone 0.3%-0.1 % ophthalm ic suspensi on Start Date: 10/08/18 Status: Ordered Ordered No Facilit y Access valACYclovi r 500 mg oral tablet 11 total refill(s ) Ordered No Facilit y Access Allergies, Adverse Reactions, Alerts Combined list of allergies from Department of Defense and Veterans Affairs facilities. It does not include entries that were removed or entered in error. Substance Category Reaction Severity Reaction type Status Date Reported Comments Source IBUPROFEN Drug allergy (disorder) Unknown active 8 [facility] ibuprofen Propensity to adverse reactions to substance Unknown Active 8 Patient has PUD, and cautioned against using NSAIDS Ambulatory Pharmacy Immunizations Combined list of available immunizations from the Department of Defense and Veterans Affairs facilities. Immunization Series Date Given Administered By Site Reaction Lot Number CVX Code Drug Microsoft Dynamics Developer Status Comments Source influenza, injectable, quadrivalent, preservative free 2020 BILLY, () Not Given influenza , injectabl e, quadrival ent, preservat bhavesh free [facility] TETANUS-DIPTH ERIA-PERTUSIS (TDAP) (HISTORICAL) 2020 NONE 139 complet ed [facility] COVID-19 (MODERNA), MRNA, LNP-S, PF, 100 MCG/0.5 ML DOSE 2 2020 207 complet ed MOD; [id number]; [facility] (MODERNA), MRNA, LNP-S, PF, 100 MCG/0.5 ML DOSE 1 2020 207 complet ed MOD; [id number]; [facility], injectable, quadrivalent- pf 2019 150 complet ed influenza , injectabl e, quadrival ent-pf 11/08/19 Given Ambulat ory Pharmac y influenza, injectable, quadrivalent, preservative free 2019 VENICE, () Not Given influenza , injectabl e, quadrival ent, preservat bhavesh free DoD Influenza, injectable, quadrivalent, preservative free 0 2019 150 (MVX) complet ed Influenza , injectabl e, quadrival ent, preservat bhavesh free DoD INFLUENZA, UNSPECIFIED FORMULATION 2019 88 complet ed BERNY StewartAlcides [facility] influenza virus vaccine, unspecified 2018 [id number] 88 sanofi pasteur complet ed influenza virus vaccine, unspecifi ed 11/14/18 Given Ambulat ory Pharmac y influenza, injectable, quadrivalent, preservative free 2018 KYM, () Not Given influenza , injectabl e, quadrival ent, preservat bhavesh free DoD influenza virus vaccine, unspecified formulation 1 2018 [id number] 88 Sanofi Pasteur (PMC) complet ed influenza virus vaccine, unspecifi ed formulati on DoD influenza, seasonal, injectable 2017 UNK 141 Unknown complet ed influenza , seasonal, injectabl e 12/02/17 Given Ambulat ory Pharmac y Influenza, seasonal, injectable 1 2017 UNK 141 Unknown (UNK) comple t ed Influenza , seasonal, injectabl e DoD influenza, injectable, quadrivalent- pf 2016 [id number] 150 GlaxoSmithKli ne complet ed influenza , injectabl e, quadrival ent-pf 12/12/16 Given Ambulat ory Pharmac y Influenza, injectable, quadrivalent, preservative free 1 2016 [id number] 150 SmithKline (SKB) complet ed Influenza , injectabl e, quadrival ent, preservat bhavesh free DoD influenza, seasonal, injectable 2015 UNK 141 Unknown complet ed influenza , seasonal, injectabl e 11/26/15 Given Ambulat ory Pharmac y Influenza, seasonal, injectable 1 2015 UNK 141 Unknown (UNK) comple t ed Influenza , seasonal, injectabl e DoD influenza, seasonal, injectable-pf 2014 [id number] 140 CSL Behring complet ed influenza , seasonal, injectabl e-pf 12/08/14 Given Ambulat ory Pharmac y measles/mumps /rubella virus vaccine 2014 [id number] 03 Merck & Company Inc complet ed measles/m umps/rube lla virus vaccine 12/08/14 Given Ambulat ory Pharmac y varicella virus vaccine 2014 [id number] 21 Merck & Company Inc complet ed varicella virus vaccine 12/08/14 Given Ambulat ory Pharmac y measles, mumps and rubella virus vaccine 2 2014 [id number] 03 Merck (MSD) complet ed measles, mumps and rubella virus vaccine DoD varicella virus vaccine 2 2014 [id number] 21 Merck (MSD) complet ed varicella virus vaccine DoD Influenza, seasonal, injectable, preservative free 1 2014 [id number] 140 CS SoCAT, Inc. (CS) complet ed Influenza , seasonal, injectabl e, preservat bhavesh free DoD varicella virus vaccine 2 2014 UNK 21 Unknown (UNK) Not Given varicella virus vaccine DoD measles/mumps /rubella virus vaccine 2014 [id number] 03 Merck & Company Inc complet ed measles/m umps/rube lla virus vaccine 06/08/14 Given Ambulat ory Pharmac y varicella virus vaccine 2014 [id number] 21 Merck & Company Inc complet ed varicella virus vaccine 06/08/14 Given Ambulat ory Pharmac y measles, mumps and rubella virus vaccine 1 2014 [id number] 03 Merck (MSD) complet ed measles, mumps and rubella virus vaccine DoD varicella virus vaccine 1 2014 [id number] 21 Merck (MSD) complet ed varicella virus vaccine DoD influenza, seasonal, injectable-pf 2013 [id number] 140 CSL Behring complet ed influenza , seasonal, injectabl e-pf 11/10/13 Given Ambulat ory Pharmac y Influenza, seasonal, injectable, preservative free 1 2013 [id number] 140 [employer] (CS) complet ed Influenza , seasonal, injectabl e, preservat bhavesh free DoD influenza, injectable, quadrivalent 2013 [id number] 158 Net-Marketing CorporationPaladin HealthcareUnfoldKli ne complet ed influenza , injectabl e, quadrival ent 02/28/13 Given Ambulat ory Pharmac y influenza, injectable, quadrivalent- pf 2013 T3954 150 GlaxoSmithKli ne complet ed influenza , injectabl e, quadrival ent-pf 02/28/13 Given Ambulat ory Pharmac y Influenza, injectable, quadrivalent, preservative free 1 2013 [id number] 150 [facility] ([facility]) complet ed Influenza , injectabl e, quadrival ent, preservat bhavesh free DoD influenza, injectable, quadrivalent, contains preservative 1 2013 T3959 158 [facility] ([facility]) complet ed influenza , injectabl e, quadrival ent, contains preservat bhavesh DoD influenza, seasonal, injectable-pf 2011 [id number] 140 CSL Behring complet ed influenza , seasonal, injectabl e-pf 01/08/12 Given Ambulat ory Pharmac y Influenza, seasonal, injectable, preservative free 1 2011 [id number] 140 CSL [employer]otherapies, Inc. (CSL) complet ed Influenza , seasonal, injectabl e, preservat bhavesh free DoD influenza virus vaccine, unspecified 2010 [id number] 88 CSL Behring complet ed influenza virus vaccine, unspecifi ed 12/05/10 Given Ambulat ory Pharmac y influenza virus vaccine, unspecified formulation 1 2010 [id number] 88 CSL [employer]otherapies, Inc. (CSL) complet ed influenza virus vaccine, unspecifi ed formulati on DoD tetanus, diphtheria, acellular pertu is 2010 [id number] 115 sanofi pasteur complet ed tetanus, diphtheri a, acellular pertussis 09/01/10 Given Ambulat ory Pharmac y anthrax vaccine 2010 [id number] 24 Emergent Biosolutions complet ed anthrax vaccine 09/01/10 Given Ambulat ory Pharmac y typhoid Vi capsular polysaccharid e vac 2010 [id number] 101 sanofi pasteur complet ed typhoid Vi capsular polysacch aride vac 09/01/10 Given Ambulat ory Pharmac y anthrax vaccine 4 2010 [id number] 24 Emergent [employer] [place] ([facility]) complet ed anthrax vaccine DoD typhoid Vi capsular polysaccharid e vaccine 1 2010 [id number] 101 Sanofi Pasteur ([facility]) complet ed typhoid Vi capsular polysacch aride vaccine DoD tetanus toxoid, reduced diphtheria toxoid, and acellular pertu is vaccine, adsorbed 1 2010 [id number] 115 Sanofi Pasteur ([facility]) complet ed tetanus toxoid, reduced diphtheri a toxoid, and acellular pertussis vaccine, adsorbed DoD influenza virus vaccine, live 2009 [id number] 111 Padlet Inc comple t ed influenza virus vaccine, live 12/27/09 Given Ambulat ory Pharmac y influenza virus vaccine, live, attenuated, for intranasal use 1 2009 [id number] 111 giddy, Inc. (MED) complet ed influenza virus vaccine, live, attenuate d, for intranasa l use DoD influenza virus vaccine, live 2008 [id number] 111 [facility] comple t ed influenza virus vaccine, live 12/29/08 Given Ambulat ory Pharmac y hepatitis B adult vaccine 2008 [id number] 9AA 43 GlaxoSmithKli ne complet ed hepatitis B adult vaccine 12/29/08 Given Ambulat ory Pharmac y hepatitis B vaccine, adult dosage 3 2008 [id number] 9AA 43 SmithKline (SKB) complet ed hepatitis B vaccine, adult dosage DoD influenza virus vaccine, live, attenuated, for intranasal use 1 2008 [id number] 111 giddy, Inc. (MED) complet ed influenza virus vaccine, live, attenuate d, for intranasa l use DoD hepatitis B adult vaccine 2008 [id number] [id number] 43 GlaxoSmithKli ne complet ed hepatitis B adult vaccine 06/09/08 Given Ambulat ory Pharmac y hepatitis A adult vaccine 2008 [id number] 2BA 52 GlaxoSmithKli ne complet ed hepatitis A adult vaccine 06/09/08 Given Ambulat ory Pharmac y influenza virus vaccine,split 2008 [id number] 2AA 15 GlaxoSmithKli ne complet ed influenza virus vaccine,s plit 06/09/08 Given Ambulat ory Pharmac y influenza virus vaccine, split virus (incl. purified surface antigen)-reti red CODE 1 2008 [id number] 2AA 15 SmithKline (SKB) complet ed influenza virus vaccine, split virus (incl. purified surface antigen)- retired CODE DoD hepatitis B vaccine, adult dosage 2 2008 [id number] 7CA 43 [facility] ([facility]) complet ed hepatitis B vaccine, adult dosage DoD hepatitis A vaccine, adult dosage 2 2008 [id number] 2BA 52 [facility] ([facility]) complet ed hepatitis A vaccine, adult dosage DoD typhoid Vi capsular polysaccharid e vac 2002 Q5419-1 101 sanofi pasteur complet ed typhoid Vi capsular polysacch aride vac 08/11/02 Given Ambulat ory Pharmac y meningococcal polysaccharid e (MPSV4) 2002 [id number] 32 sanofi pasteur complet ed meningoco ccal polysacch aride (MPSV4) 08/11/02 Given Ambulat ory Pharmac y tetanus-dipht h toxoids (Td) adult/adol 2002 [id number] 09 sanofi pasteur complet ed tetanus-d iphth toxoids (Td) adult/ado l 08/11/02 Given Ambulat ory Pharmac y hepatitis A adult vaccine 2002 [id number] 52 GlaxoSmithKli ne complet ed hepatitis A adult vaccine 08/11/02 Given Ambulat ory Pharmac y hepatitis B adult vaccine 2002 [id number] 43 Testin & Company Inc complet ed hepatitis B adult vaccine 08/11/02 Given Ambulat ory Pharmac y poliovirus vaccine, inactivated 2002 UO199 10 sanofi pasteur complet ed polioviru s vaccine, inactivat ed 08/11/02 Given Ambulat ory Pharmac y tetanus and diphtheria toxoids, adsorbed, preservative free, for adult use (2 Lf of tetanus toxoid and 2 Lf of diphtheria toxoid) 0 2002 [id number] 09 Sanofi Pasteur (PMC) complet ed tetanus and diphtheri a toxoids, adsorbed, preservat bhavesh free, for adult use (2 Lf of tetanus toxoid and 2 Lf of diphtheri a toxoid) DoD poliovirus vaccine, inactivated 0 2002 [id number] 10 Sanofi Pasteur (PMC) complet ed polioviru s vaccine, inactivat ed DoD meningococcal polysaccharid e vaccine (MPSV4) 0 2002 [id number] 32 Sanofi Pasteur (PMC) complet ed meningoco ccal polysacch aride vaccine (MPSV4) DoD hepatitis B vaccine, adult dosage 1 2002 [id number] 43 Merck (MSD) complet ed hepatitis B vaccine, adult dosage DoD hepatitis A vaccine, adult dosage 1 2002 [id number] 6 52 Yi DeKline (SKB) complet ed hepatitis A vaccine, adult dosage DoD typhoid Vi capsular polysaccharid e vaccine 0 2002 N5618-9 101 Sanofi Pasteur (PMC) complet ed typhoid Vi capsular polysacch aride vaccine DoD anthrax vaccine 1999 [id number] 24 Emergent Biosolutions complet ed anthrax vaccine 04/26/99 Given Ambulat ory Pharmac y anthrax vaccine 3 1999 [id number] 24 [employer] [place] (MIP) complet ed anthrax vaccine DoD anthrax vaccine 1999 [id number] 24 Emergent Biosolutions complet ed anthrax vaccine 04/14/99 Given Ambulat ory Pharmac y anthrax vaccine 2 1999 [id number] 24 [employer] [place] (MIP) complet ed anthrax vaccine DoD anthrax vaccine 1999 [id number] 24 Emergent Biosolutions complet ed anthrax vaccine 03/28/99 Given Ambulat ory Pharmac y anthrax vaccine 1 1999 [id number] 24 [employer] [place] (MIP) complet ed anthrax vaccine DoD Vital Signs Combined list of inpatient and outpatient Vital Signs from Department of Defense and Veterans Affairs, ranging from 12 months to all on record, depending upon the facility. Vital Sign Value Date Comments Source Systolic Blood Pressure 125mm[Hg] 04/03/2022 17:03:00 Ambulatory Pharmacy Diastolic Blood Pressure 89mm[Hg] 04/03/2022 17:03:00 Ambulatory Pharmacy Temperature Oral 36.8Cel 04/03/2022 13:53:00 Ambulatory Pharmacy Systolic Blood Pressure 125mm[Hg] 04/03/2022 13:53:00 Ambulatory Pharmacy Diastolic Blood Pressure 89mm[Hg] 04/03/2022 13:53:00 Ambulatory Pharmacy Peripheral Pulse Rate 84bpm 04/03/2022 13:53:00 Ambulatory Pharmacy Respiratory Rate 17br/min 04/03/2022 13:53:00 Ambulatory Pharmacy Encounters Combined list of: 1) Encounters from Department of Veterans Affairs facilities going back up to thelast 18 months. 2) Encounters from the Department of Defense facilities going back up to 280 months. Location Location Details Encounter Type Encounter Number Reason For Visit Attending Provider ADM Date DC Date Status Disposition Source [facility]) OUTPATIENT [id number] PRE-EMP LOYMENT PURNIMA BROWNI 06/17 Released w/o Limitations [facility]) OUTPATIENT [id number] ANNUAL PEG 131T PURNIMA MENDEZI 07/22 Released w/o Limitations [facility]) OUTPATIENT [id number] ANNUAL PEG 681A PURNIMA MENDEZI 06/22 Released w/o Limitations [facility]) OUTPATIENT [id number] ANNUAL PEG 158D PURNIMA MENDEZI 08/25 Released w/o Limitations [facility]) OUTPATIENT [id number] Notes Entered by: LUZ ELENA LAO 02 Sep 2011 1749 ------- ------- ------- ------- -- respira tor questio naLUZ ELENA Lazcano 09/01 Released w/o Limitations [facility]) OUTPATIENT [id number] ANNUAL PEG 158L PURNIMA MENDEZ NMI 04/14 Released w/o Limitations [facility]) OUTPATIENT [id number] New Injury LUZ ELENA LAO 09/07 Released with Work/Duty Limitations [facility]) OUTPATIENT [id number] f/u job related WILLIAM MEADOWS Cor[place] 09/12 Released with Work/Duty Limitations [employer] [facility] [employer]([facility]) OUTPATIENT [id number] f/u job related WILLIAM MEADOWS [place] 09/21 Released w/o Limitations [facility]) OUTPATIENT [id number] F/U Job related LUZ ELENA LAO 01/25 Released w/o Limitations [facility]) [facility]) OUTPATIENT [id number] ANNUAL PEG 158D PURNIMA MENDEZ NMI 03/30 Released w/o Limitations [employer] [facility]) [facility]) OUTPATIENT [id number] ANNUAL PEG 158D PURNIMA MENDEZ NMI 03/08 [facility]ased w/o Limitations [facility]) [facility]) OUTPATIENT [id number] Notes Entered by: ANDRE GARCIA 14 Jun 2014 0935 ------- ------- ------- ------- -- NEW INJURY (Knee) DIANA REY 06/14 Released w/o Limitations [facility]) TELE CONSULT [id number] SAIRA MARTIN 06/17 [employer]) OUTPATIENT [id number] Notes Entered by: SKYLER GARCIA 10 Jul 2014 0929 ------- ------- ------- ------- -- F/u Job Related DIANA REY 07/10 Released w/o Limitations [employer] [facility] OUTPATIENT [id number] ANNUAL PEG 158D RUTHY ELIZALDE 04/11 Released w/o Limitations [employer] [facility]) [employer] [facility] OUTPATIENT [id number] ANNUAL PEG 158D GEOVANNY COLLIER 04/11 Released w/o Limitations [employer] [facility] [employer] [facility]) OUTPATIENT [id number] f/u job related (reoccu rence) LUZ ELENA LAO 09/14 Released w/o Limitations [employer] [facility]) [employer] [facility] OUTPATIENT [id number] New rehab 02/21 BARILLAS, MICHAEL 09/18 Released w/o Limitations [employer] [facility]) [employer] [facility]) OUTPATIENT [id number] F/U rehab 2/2 BARILLAS, MICHAEL 09/21 Released w/o Limitations [employer] [facility]) [employer] [facility] OUTPATIENT [id number] F/U rehab 3/3 BARILLAS, MICHAEL 09/23 Released w/o Limitations [employer] [facility]) [employer] [facility]) OUTPATIENT [id number] F/U rehab 4/4 BARILLAS, MICHAEL 09/28 Released w/o Limitations [employer] [facility]) [employer] [facility]) OUTPATIENT [id number] F/U rehab 4/4 BARILLAS, MICHAEL 09/30 Released w/o Limitations [employer] [facility]) [employer] [facility]) OUTPATIENT [id number] F/U rehab 5/5 BARILLAS, MICHAEL 10/05 Released w/o Limitations [employer] [facility]) [employer] [facility] OUTPATIENT [id number] F/U rehab 6/7 BARILLAS, MICHAEL 10/08 Released w/o Limitations [employer]) [employer] [facility] OUTPATIENT [id number] F/U Job related LUZ ELENA LAO E 10/09 Released w/o Limitations [employer]) [employer] OUTPATIENT [id number] rehab BARILLAS, MICHAEL 10/12 Released w/o Limitations [employer]) [employer] [facility] OUTPATIENT [id number] F/U rehab 09/29 BARILLAS, MICHAEL 10/14 Released w/o Limitations [facility]) [facility] Group([facility]) OUTPATIENT [id number] f/u job related LUZ ELENA ALO E 11/16 Released w/o Limitations [employer](O ccupati onal Medicin e Clinic) [employer](Pub [facility]) OUTPATIENT [id number] F/U rehab 11/01, MICHAEL 11/18 Released w/o Limitations [employer](P ublic Health) [employer](Pub lic Health) OUTPATIENT [id number] F/U rehab 12/02, MICHAEL 11/23 Released w/o Limitations [employer](P ublic Health) [employer]([facility]) OUTPATIENT [id number] F/U rehab 01/03, MICHAEL 12/02 Released w/o Limitations [employer](P ublic Health) [employer]([facility]) OUTPATIENT [id number] F/U rehab 02/03, MICHAEL 12/07 Released w/o Limitations [employer](P ublic Health) [employer](CSA G/Fast Forward) OUTPATIENT [id number] ANNUAL PEG 158J/15 8L/158D RUTHY ELIZALDE 04/02 Released w/o Limitations [employer](C SAG/Fas t Forward ) [employer](Hea ring Conservat ion Clinic) OUTPATIENT [id number] ANNUAL PEG 158J/15 8L/158D AMELIA SR 04/02 Released w/o Limitations [employer](H earing Conserv ation Clinic) [facility] [place] [place](Emerge ncy Medicine) OUTPATIENT [id number] BABS FOLEY 09/04 Released w/o Limitations [facility] [place](Tena gency Medicin e) [facility] [place](Orthop edic) OUTPATIENT [id number] left ankle RHONA STACY 09/06 Released with Work/Duty Limitations [facility] [place](Orth opedic) [facility] [place]([facility] S06C Provid) OUTPATIENT [id number] Er/f/u SUKUMAR PENDLETON 09/07 Released w/o Limitations [facility] S06C Provid) [facility] [place](Orthop edic) OUTPATIENT [id number] Notes Entered by: GOLDIE DORSEY 09 Sep 2016 0830 ------- ------- ------- ------- -- Duty Status form CHRISTINE DORSEY 09/09 Released w/o Limitations [facility] [place](Orth opedic) [facility] upational Medicine [facility]) OUTPATIENT [id number] Notes Entered by: JAVID CURRIE 21 Jan 2017 0805 ------- ------- ------- ------- -- RTW non job related (nurse) JACQUELINE MODI 01/21 Released w/o Limitations [facility] [employer] [facility](O ccupati onal Medicin e Clinic) [facility] OUTPATIENT [id number] ANNUAL PEG 158J/15 8D RUTHY ELIZALDE 03/17 Released w/o Limitations [employer](O ccupati onal Medicin e Clinic) [facility]a ring [facility]at ion [facility]) OUTPATIENT [id number] ANNUAL PEG 158J/15 8D AMELIA SR 03/17 Released w/o Limitations [employer](H earing Conserv ation Clinic) [facility] OUTPATIENT [id number] F/U JOB RELATED CINDY FLOWER 11/17 Released with Work/Duty Limitations [facility](O ccupati onal Medicin e Clinic) [employer](CSA G/Fast Forward) OUTPATIENT [id number] New rehab 02/21 BARILLAS, MICHAEL 11/23 Released with Work/Duty Limitations [employer](C SAG/Fas t Forward ) [employer]([facility] Medicine [facility]) OUTPATIENT [id number] f/u job related MUNDOANTONYY A 11/24 Released with Work/Duty Limitations [employer](O ccupati onal Medicin e Clinic) [employer](CSA G/Fast Forward) OUTPATIENT [id number] F/U rehab 22 BARILLAS, MICHAEL 11/25 Released with Work/Duty Limitations [employer](C SAG/Fas t Forward ) [employer](CSA G/Fast Forward) OUTPATIENT [id number] F/U rehab 04/23 BARILLAS, MICHAEL 11/30 Released with Work/Duty Limitations [employer](C SAG/Fas t Forward ) [employer](CSA G/Fast Forward) OUTPATIENT [id number] F/U rehab 05/25 BARILLAS, MICHAEL 12/05 Released with Work/Duty Limitations [employer](C SAG/Fas t Forward ) [employer](CSA G/Fast Forward) OUTPATIENT [id number] F/U rehab 06/25 BARILLAS, MICHAEL 12/07 Released with Work/Duty Limitations [employer](C SAG/Fas t Forward ) [employer]([facility] Medicine [facility]) OUTPATIENT [id number] F/U JRI CINDY FLOWER A 12/14 Released with Work/Duty Limitations [employer](O ccupati onal Medicin e Clinic) [employer](CSA G/Fast Forward) OUTPATIENT [id number] F/U rehab 07/28 BARILLAS, MICHAEL 12/14 Released with Work/Duty Limitations [employer](C SAG/Fas t Forward ) [employer](CSA G/Fast Forward) OUTPATIENT [id number] F/U rehab 08/29 BARILLAS, MICHAEL 12/23 Released with Work/Duty Limitations [employer](C SAG/Fas t Forward ) [employer](CSA G/Fast Forward) OUTPATIENT [id number] F/U rehab 09/30 MICHAEL BARILLAS 12/27 Released with Work/Duty Limitations [employer](C SAG/Fas t Forward ) [employer](CSA G/Fast Forward) OUTPATIENT [id number] F/U rehab 11/01 MICHAEL BARILLAS 12/30 Released with Work/Duty Limitations [employer](C SAG/Fas t Forward ) [employer](HAF B Optometry Clinic) OUTPATIENT [id number] Notes Entered by: YONG MONTENEGRO 15 Nov 2018 1131 ------- ------- ------- ------- -- FIT AND ORDERED COMPUTE R GLASSES YONG MONTENEGRO 11/15 Released w/o Limitations [facility] [place] [address]([facility]IP RR Readiness [facility]) OUTPATIENT [id number] TCON PROFILE [facility] NIRALI SANTOS 09/03 [facility] Limitations [facility] [place] [address](V IPRR Readine ss Clinic) Brii [facility](AMH M01A Gold) TELE CONSULT [id number] Notes Entered by: JOSEPH HANCOCK 04 Sep 2019 1030 ------- ------- ------- ------- -- TPR SM request Temp Profile [facility]E [facility]ANCOCK [facility] [place] [address]([facility]) OUTPATIENT [id number] TCON/AC FT PROFILE [facility] [phone] ROGER BARROW 09/30 Released with Work/Duty Limitations [facility] [place] [address](V IPRR Readine [facility] [address]([facility]) OUTPATIENT [id number] Notes Entered by: Jona BANERJEE 02 Oct 2020 1407 ------- ------- ------- ------- -- Care Coordin LINH Willingham 10/02 Released w/o Limitations [facility] [place] [address](V IPRR Readine ss Clinic) [place] [address](VIP RR Readiness Clinic) OUTPATIENT [id number] 2nd Sig/TPR C/ SUNNYCITLALY 10/06 Released w/o Limitations [facility] [place] [address](V IPRR Readine ss Clinic) [address] [place] [address] Outpatient [id number] [facility] er for examina tion for admissi on to educati onal institu tion EZEQUIELO STER 10/31 Discharge Disposition: Home or Self Care [address] [place] [address] Procedures Combined list of: 1) Procedures from Department of Veterans Affairs facilities going back up to thelast 18 months, not all VA non-surgical procedures are included; 2) All procedures from the Department of Defense facilities. Procedure Procedure Type Code Date Perfomer Comments Sourc e No data available for this section Ambulato ry Pharmacy Screening Test Of Visual Acuity, Quantitative, Bilateral Screening Test Of Visual Acuity, Quantitative, Bilateral 03270 04/11/19 16 AWUNGRUTHY [facility] Ear mold/insert, disposable, any type 04/11/19 16 GEOVANNY COLLIER Threshold Audiogram (Pure Tone) Automated Threshold Audiogram (Pure Tone) Automated 0208T 04/11/19 16 GEOVANNY COLLIER Patient education, not otherwise cla ified, non-physician provider, individual, per se ion 04/11/19 16 GEOVANNY COLLIER Screening Test Of Visual Acuity, Quantitative, Bilateral Screening Test Of Visual Acuity, Quantitative, Bilateral 06982 03/08/19 15 PURNIMA MENDEZ Patient education, not otherwise cla ified, non-physician provider, individual, per se ion 03/08/19 15 PURNIMA MENDEZ Ear mold/insert, disposable, any type 03/08/19 15 PURNIMA MENDEZ Threshold Audiogram (Pure Tone) Threshold Audiogram (Pure Tone) 03489 03/08/19 15 PURNIMA MENDEZ [facility] Extensive Color Vision Testing Extensive Color Vision Testing 44391 03/30/19 14 VIDHYA NAILS [facility] Screening Test Of Visual Acuity, Quantitative, Bilateral Screening Test Of Visual Acuity, Quantitative, Bilateral 56865 03/30/19 14 VIDHYA NAILS [facility] Patient education, not otherwise cla ified, non-physician provider, individual, per se ion 04/14/19 13 PURNIMA MENDEZ [facility] Threshold Audiogram (Pure Tone) Threshold Audiogram (Pure Tone) 12820 04/14/19 13 PURNIMA MENDEZ [facility] Annual hearing test no sts noted DoD Ear mold/insert, disposable, any type 04/14/19 13 PURNIMA MENDEZ [facility] Screening Test Of Visual Acuity, Quantitative, Bilateral Screening Test Of Visual Acuity, Quantitative, Bilateral 52081 04/14/19 13 PURNIMA MENDEZ [facility] Extensive Color Vision Testing Extensive Color Vision Testing 93282 04/14/19 13 PURNIMA MENDEZ [facility] Patient education, not otherwise cla ified, non-physician provider, individual, per se ion 08/26/19 12 ZRBRUBENS Threshold Audiogram (Pure Tone) Threshold Audiogram (Pure Tone) 11970 08/26/19 12 ZRABB, RUBENS Annual hearing test no sts noted DoD Ear mold/insert, disposable, any type 08/26/19 12 ZRRUBENS DOUGLAS Screening Test Of Visual Acuity, Quantitative, Bilateral Screening Test Of Visual Acuity, Quantitative, Bilateral 83304 08/26/19 12 ZRB, RUBENS [facility] Patient education, not otherwise cla ified, non-physician provider, individual, per se ion 06/23/19 12 ZRABB, RUBENS DoD Threshold Audiogram (Pure Tone) Threshold Audiogram (Pure Tone) 90292 06/23/19 12 ZRABB, RUBENS Annual hearing test no sts noted DoD Ear mold/insert, disposable, any type 06/23/19 12 ZRABB, RUBENS DoD Threshold Audiogram (Pure Tone) Threshold Audiogram (Pure Tone) 48199 07/23/19 11 PURNIMA MENDEZ NMI DoD Ear mold/insert, disposable, any type 07/23/19 11 PURNIMA MENDEZ [facility] Patient education, not otherwise cla ified, non-physician provider, individual, per se ion 07/23/19 11 PURNIMA MENDEZ [facility] Patient education, not otherwise cla ified, non-physician provider, individual, per se ion 06/18/19 10 PURNIMA MENDEZ [facility] Threshold Audiogram (Pure Tone) Threshold Audiogram (Pure Tone) 63078 06/18/19 10 PURNIMA MENDEZ [facility] Pre Employee hearing test [facility] Ear mold/insert, disposable, any type 06/18/19 10 PURNIMA MENDEZ [facility] Screening Test Of Visual Acuity, Quantitative, Bilateral Screening Test Of Visual Acuity, Quantitative, Bilateral 45898 06/18/19 10 PURNIMA MENDEZ [facility] Extensive Color Vision Testing Extensive Color Vision Testing 48164 06/18/19 10 PURNIMA MENDEZ [facility] Modalities Electrical Stimulation Modalities Electrical Stimulation 60660 12/31/19 18 BARILLAS, MICHAEL [facility] Modalities Heat Hot Packs Modalities Heat Hot Packs 70513 12/31/19 18 BARILLAS, MICHAEL [facility] Physical Therapy: ___ Se ion Segments, 15 Minutes Each Physical Therapy: ___ Session Segments, 15 Minutes Each 42705 12/31/19 18 BARILLAS, MICHAEL [facility] Physical Therapy: ___ Se ion Segments, 15 Minutes Each Physical Therapy: ___ Session Segments, 15 Minutes Each 24653 12/28/19 18 BARILLAS, MICHAEL PRONE AND SUPINE SHOULDER WITH 4# BALL TO WALL TABLE PUSH UPS UPRIGHT ROW WITH [employer] EMPLOYEE BENEFITS INSURANCE AGENT [facility] Modalities Heat Hot Packs Modalities Heat Hot Packs 88624 12/28/19 18 BARILLAS, MICHAEL [facility] Physical Therapy Johanny romero Physical Therapy Massage 25639 12/28/19 18 BARILLAS, MICHAEL [facility] Physical Therapy: ___ Se ion Segments, 15 Minutes Each Physical Therapy: ___ Session Segments, 15 Minutes Each 48994 12/28/19 18 BARILLAS, MICHAEL [facility] Physical Therapy: ___ Se ion Segments, 15 Minutes Each Physical Therapy: ___ Session Segments, 15 Minutes Each 57822 12/20/19 18 BARILLAS, MICHAEL [facility] Physical Therapy Johanny romero Physical Therapy Massage 66629 10/29/20 18 BARILLAS, MICHAEL DoD Modalities Electrical Stimulation Modalities Electrical Stimulation 00331 12/20/19 BARILLAS, MICHAEL DoD Modalities Heat Hot Packs Modalities Heat Hot Packs 03018 12/20/19 BARILLAS, MICHAEL DoD Mobilization Soft Ti ue Mobilization Soft Tissue 57886 12/13/19 BARILLAS, MICHAEL DoD Physical Therapy: ___ Se ion Segments, 15 Minutes Each Physical Therapy: ___ Session Segments, 15 Minutes Each 36262 12/13/19 BARILLAS, MICHAEL [employer] EMPLOYEE BENEFITS INSURANCE AGENT SHOULDER EXERCISES WALL SLIDES WITH BAND TABLE PUSH UPS WITH LOWER INCLINE 3X10 EACH DoD Modalities Electrical Stimulation Modalities Electrical Stimulation 68363 12/13/19 BARILLAS, MICHAEL DoD Modalities Heat Hot Packs Modalities Heat Hot Packs 83363 12/13/19 BARILLAS, MICHAEL DoD Physical Therapy: ___ Se ion Segments, 15 Minutes Each Physical Therapy: ___ Session Segments, 15 Minutes Each 80736 12/13/19 BARILLAS, MICHAEL [employer]EE BENEFITS INSURANCE AGENT SHOULDER EXERCISES TABLE PUSH UPS BALL TO WALL WALL SLIDES 3X10 EACH DoD Physical Therapy: ___ Se ion Segments, 15 Minutes Each Physical Therapy: ___ Session Segments, 15 Minutes Each 98600 12/01/19 BARILLAS, MICHAEL SHOULDER FLX/ABD/SCAPT ION 3# SHOULDER ROWS WITH [employer] EMPLOYEE BENEFITS INSURANCE AGENT 30# TABLE PUSH UPS 3X10 EACH DoD Mobilization Soft Ti ue Mobilization Soft Tissue 24808 12/01/19 BARILLAS, MICHAEL DoD Modalities Electrical Stimulation Modalities Electrical Stimulation 62226 12/01/19 BARILLAS, MICHAEL DoD Modalities Heat Hot Packs Modalities Heat Hot Packs 17848 12/01/19 BARILLAS, MICHAEL DoD A isted Exercises For ROM Assisted [place]ercises [place] 46821 11/26/19 BARILLAS, MICHAEL DoD Mobilization Soft Ti ue Mobilization Soft Tissue 81113 11/26/19 BARILLAS, MICHAEL DoD Modalities Heat Hot Packs Modalities Heat Hot Packs 95859 11/26/19 BARILLAS, MICHAEL DoD Modalities Electrical Stimulation Modalities Electrical Stimulation 39372 11/26/19 BARILLAS, MICHAEL DoD Mobilization Soft Ti ue Mobilization Soft Tissue 56305 11/26/19 BARILLAS, MICHAEL HYPER VOLT VIBRATORY MASSAGE DoD A isted Exercises For ROM Assisted Exercises For ROM 35467 11/26/19 18 MICHAEL BARILLAS SHOULDER STRETCHES [facility] Modalities Electrical Stimulation Modalities Electrical Stimulation 43114 11/26/19 18 MICHAEL BARILLAS PREMODE 20MIN [facility] Athletic Training Evaluation Low Complexity Athletic Training Evaluation Low Complexity 52895 11/26/19 18 MICHAEL BARILLAS [facility] Spirometry Spirometry 03507 03/17/19 18 RUTHY ELIZALDE Extensive Color Vision Testing Extensive Color Vision Testing 03921 03/17/19 18 RUTHY ELIZALDE Screening Test Of Visual Acuity, Quantitative, Bilateral Screening Test Of Visual Acuity, Quantitative, Bilateral 56366 03/17/19 18 RUTHY ELIZALDE Patient education, not otherwise cla ified, non-physician provider, individual, per se ion 03/17/19 18 AMELIA SR Threshold Audiogram (Pure Tone) Threshold Audiogram (Pure Tone) 12940 03/17/19 18 AMELIA SR Ear mold/insert, disposable, any type 03/17/19 18 AMELIA SR visit for: screening exam alcoholism visit for: screening exam alcoholism 3016F 09/08/19 17 MICLAT, SUKUMAR P Sandy Preventive Med Standardized Depre ion Screening: Negative For Symptoms Preventive Med Standardized Depression Screening: Negative For Symptoms 3351F 09/08/19 17 MICLAT, SUKUMAR P Sandy Walking boot, non-pneumatic, with or without joints, with or without interface material, prefabricated item that has been trimmed, bent, molded, a embled, or otherwise customized to fit a specific patient by an individual with expertise 09/07/19 17 RHONA STACY Ear mold/insert, disposable, any type 04/02/19 17 AMELIA SR Patient education, not otherwise cla ified, non-physician provider, individual, per se ion 04/02/19 17 AMELIA SR Threshold Audiogram (Pure Tone) Threshold Audiogram (Pure Tone) 16368 04/02/19 17 AMELIA SR Spirometry Spirometry 56617 04/02/19 17 RUTHY ELIZALDE Extensive Color Vision Testing Extensive Color Vision Testing 42799 04/02/19 17 RUTHY ELIZALDE Screening Test Of Visual Acuity, Quantitative, Bilateral Screening Test Of Visual Acuity, Quantitative, Bilateral 93969 04/02/19 17 AWUNG, RUTHY N DoD Modalities Electrical Stimulation Modalities Electrical Stimulation 49646 12/12/19 16 BARILLAS, MICHAEL DoD Modalities Heat Hot Packs Modalities Heat Hot Packs 81802 12/12/19 16 BARILLAS, MICHAEL DoD Physical Therapy Neuromuscular Re-education Physical Therapy Neuromuscular Re-education 94692 12/12/19 16 BARILLAS, MICHAEL DoD Physical Therapy: ___ Se ion Segments, 15 Minutes Each Physical Therapy: ___ Session Segments, 15 Minutes Each 46971 12/12/19 16 BARILLAS, MICHAEL DoD Modalities Electrical Stimulation Modalities Electrical Stimulation 20657 12/11/19 16 BARILLAS, MICHAEL DoD Modalities Heat Hot Packs Modalities Heat Hot Packs 00209 12/11/19 16 BARILLAS, MICHAEL DoD Physical Therapy: ___ Se ion Segments, 15 Minutes Each Physical Therapy: ___ Session Segments, 15 Minutes Each 78894 12/11/19 16 BARILLAS, MICHAEL DoD Modalities Electrical Stimulation Modalities Electrical Stimulation 74150 11/28/19 16 BARILLAS, MICHAEL DoD Modalities Heat Hot Packs Modalities Heat Hot Packs 20724 11/28/19 16 BARILLAS, MICHAEL DoD Physical Therapy: ___ Se ion Segments, 15 Minutes Each Physical Therapy: ___ Session Segments, 15 Minutes Each 88976 11/28/19 16 BARILLAS, MICHAEL DoD Modalities Heat Hot Packs Modalities Heat Hot Packs 57375 11/26/19 16 BARILLAS, MICHAEL DoD Modalities Electrical Stimulation Modalities Electrical Stimulation 43077 11/26/19 16 BARILLAS, MICHAEL DoD Physical Therapy: ___ Se ion Segments, 15 Minutes Each Physical Therapy: ___ Session Segments, 15 Minutes Each 28015 11/26/19 16 BARILLAS, MICHAEL DoD Modalities Electrical Stimulation Modalities Electrical Stimulation 08010 10/17/19 16 BARILLAS, MICHAEL DoD Modalities Heat Hot Packs Modalities Heat Hot Packs 84769 10/17/19 16 BARILLAS, MICHAEL DoD Physical Therapy Neuromuscular Re-education Physical Therapy Neuromuscular Re-education 14295 10/17/19 16 BARILLAS, MICHAEL DoD Physical Therapy: ___ Se ion Segments, 15 Minutes Each Physical Therapy: ___ Session Segments, 15 Minutes Each 00984 10/17/19 16 BARILLAS, MICHAEL DoD Physical Therapy: ___ Se ion Segments, 15 Minutes Each Physical Therapy: ___ Session Segments, 15 Minutes Each 42163 10/13/19 16 BARILLAS, MICHAEL DoD Mobilization Soft Ti ue Mobilization Soft Tissue 92249 10/13/19 16 BARILLAS, MICHAEL DoD Modalities Electrical Stimulation Modalities Electrical Stimulation 35754 10/13/19 16 BARILLAS, MICHAEL DoD Modalities Heat Hot Packs Modalities Heat Hot Packs 08483 10/13/19 16 BARILLAS, MICHAEL DoD Physical Therapy: ___ Se ion Segments, 15 Minutes Each Physical Therapy: ___ Session Segments, 15 Minutes Each 94279 10/09/19 16 BARILLAS, MICHAEL DoD Mobilization Soft Ti ue Mobilization Soft Tissue 88573 10/09/19 16 BARILLAS, MICHAEL HAWKS RESEARCH CHEMIST TOOLS DoD Modalities Heat Hot Packs Modalities Heat Hot Packs 23924 10/09/19 16 BARILLAS, MICHAEL DoD Modalities Electrical Stimulation Modalities Electrical Stimulation 08198 10/09/19 16 BARILLAS, MICHAEL DoD Physical Therapy Neuromuscular Re-education Physical Therapy Neuromuscular Re-education 65199 10/09/19 16 BARILLAS, MICHAEL DoD Modalities Heat Hot Packs Modalities Heat Hot Packs 75261 10/01/19 16 BARILLAS, MICHAEL DoD Mobilization Soft Ti ue Mobilization Soft Tissue 56449 10/01/19 16 BARILLAS, MICHAEL DoD Physical Therapy Neuromuscular Re-education Physical Therapy Neuromuscular Re-education 24393 10/01/19 16 BARILLAS, MICHAEL DoD Physical Therapy: ___ Se ion Segments, 15 Minutes Each Physical Therapy: ___ Session Segments, 15 Minutes Each 84353 10/01/19 16 BARILLAS, MICHAEL DoD Modalities Electrical Stimulation Modalities Electrical Stimulation 69880 10/01/19 16 BARILLAS, MICHAEL DoD Modalities Electrical Stimulation Modalities Electrical Stimulation 02979 09/30/19 16 BARILLAS, MICHAEL DoD Modalities Heat Hot Packs Modalities Heat Hot Packs 15967 09/30/19 16 BARILLAS, MICHAEL DoD Physical Therapy Neuromuscular Re-education Physical Therapy Neuromuscular Re-education 89331 09/30/19 16 BARILLAS, MICHAEL DoD Physical Therapy: ___ Se ion Segments, 15 Minutes Each Physical Therapy: ___ Session Segments, 15 Minutes Each 96578 09/30/19 16 BARILLAS, MICHAEL DoD Mobilization Soft Ti ue Mobilization Soft Tissue 83015 09/22/19 16 BARILLAS, MICHAEL HAWKS BOBJ DEVELOPER TOOLS DoD Modalities Heat Hot Packs Modalities Heat Hot Packs 34337 09/22/19 16 MICHAEL BARILLAS DoD Modalities Electrical Stimulation Modalities Electrical Stimulation 30399 09/22/19 16 BARILLASMICHAEL Lozoya DoD Mobilization Soft Ti ue Mobilization Soft Tissue 92131 09/22/19 16 XIMENA BARILLAST HAWKS RESEARCH CHEMIST TOOLS STRETCHING EXERCISES DoD Modalities Cryotherapy Cold Packs Modalities Cryotherapy Cold Packs 65435 09/22/19 16 MICHAEL BARILLAS [facility] Athletic Training Evaluation Athletic Training Evaluation 03720 09/22/19 16 MICHAEL BARILLAS [facility] Spectacles Services Fitting Bifocal Except For Aphakia Spectacles Services Fitting Bifocal Except For Aphakia 76989 YONG MONTENEGRO [facility] Brief communication technology-based service, e.g. virtual check-in, by a physician or other qualified health care profe ramos who can report evaluation and management services, provided to an established patient, not originating from a related E/M service provided within the previous 7 days nor leading to an E/M service or procedure within the next 24 hours or soonest available appointment; 5-10 minutes of medical discu NIRALI Fry [facility] Case Management, each 15 minutes LINH BANERJEE [facility] FITTING OF SPECTACLES, EXCEPT FOR APHAKIA; BIFOCAL 11/16/19 19 [facility] BRIEF COMM TECH-BASE SERV,E.G. VIRT CHK-IN,BY PHYS/OTH QUAL HCP,RPT E&M SERV,PROV TO EST PT,NOT ORIG FRM REL E/M SERV PROV W/IN PREV 7DAY NOR LEAD TO E/M SRV/PX W/IN NEXT 24HR/SOON DARBY; 5-10 MIN DISC 10/07/19 21 DoD CASE MANAGEMENT, EACH 15 MINUTES 10/03/19 21 [facility] BRIEF COMM TECH-BASE SERV,E.G. VIRT CHK-IN,BY PHYS/OTH QUAL HCP,RPT E&M SERV,PROV TO EST PT,NOT ORIG FRM REL E/M SERV PROV W/IN PREV 7DAY NOR LEAD TO E/M SRV/PX W/IN NEXT 24HR/SOON DARBY; 5-10 MIN DISC 09/04/19 20 [facility] PATIENT SCREENED FOR UNHEALTHY ALCOHOL USE USING A SYSTEMATIC SCREENING METHOD (PV) (DSP) 09/08/19 17 DoD WALKING BOOT,NON-PNEUMAT, W/W/O JOINTS,W/W/O INTERFACE MATERIAL,PREFABRI CATED ITEM THAT HAS BEEN TRIMMED,BENT,MOLD ED,ASSEMBLED,OR OTHERWISE CUSTOMIZED TO FIT A SPECIFIC PATIENT,AN INDIV W EXPERTISE 09/07/19 17 [facility] CRUTCHES UNDERARM, OTHER THAN WOOD, ADJUSTABLE OR FIXED, PAIR, WITH PADS, TIPS AND HANDGRIPS 09/05/19 17 [facility] APPLICATION OF A MODALITY TO 1 OR MORE AREAS; ELECTRICAL STIMULATION (MANUAL), EACH 15 MINUTES 12/31/19 [facility] THERAPEUTIC PROCEDURE, 1 OR MORE AREAS, EACH 15 MINUTES; THERAPEUTIC EXERCISES TO DEVELOP STRENGTH AND ENDURANCE, RANGE OF MOTION AND FLEXIBILITY 12/28/19 [facility] THERAPEUTIC PROCEDURE, 1 OR MORE AREAS, EACH 15 MINUTES; MASSAGE, INCLUDING EFFLEURAGE, PETRISSAGE AND/OR TAPOTEMENT (STROKING, COMPRESSION, PERCUSSION) 12/24/19 [facility] THERAPEUTIC PROCEDURE, 1 OR MORE AREAS, EACH 15 MINUTES; THERAPEUTIC EXERCISES TO DEVELOP STRENGTH AND ENDURANCE, RANGE OF MOTION AND FLEXIBILITY 12/15/19 18 [facility] MANUAL THERAPY TECHNIQUES (EG, MOBILIZATION/ MANIPULATION, MANUAL LYMPHATIC DRAINAGE, MANUAL TRACTION), 1 OR MORE REGIONS, EACH 15 MINUTES 12/08/19 18 [facility] THERAPEUTIC PROCEDURE, 1 OR MORE AREAS, EACH 15 MINUTES; THERAPEUTIC EXERCISES TO DEVELOP STRENGTH AND ENDURANCE, RANGE OF MOTION AND FLEXIBILITY 12/06/19 [facility] THERAPEUTIC PROCEDURE, 1 OR MORE AREAS, EACH 15 MINUTES; THERAPEUTIC EXERCISES TO DEVELOP STRENGTH AND ENDURANCE, RANGE OF MOTION AND FLEXIBILITY 12/01/19 [facility] THERAPEUTIC PROCEDURE, 1 OR MORE AREAS, EACH 15 MINUTES; THERAPEUTIC EXERCISES TO DEVELOP STRENGTH AND ENDURANCE, RANGE OF MOTION AND FLEXIBILITY 11/26/19 [facility] MANUAL THERAPY TECHNIQUES (EG, MOBILIZATION/ MANIPULATION, MANUAL LYMPHATIC DRAINAGE, MANUAL TRACTION), 1 OR MORE REGIONS, EACH 15 MINUTES 11/24/19 18 [facility] PATIENT EDUCATION, NOT OTHERWISE CLASSIFIED, NON-PHYSICIAN PROVIDER, INDIVIDUAL, PER SESSION 03/17/19 18 [facility] SCREENING TEST OF VISUAL ACUITY, QUANTITATIVE, BILATERAL 03/17/19 18 [facility] PATIENT EDUCATION, NOT OTHERWISE CLASSIFIED, NON-PHYSICIAN PROVIDER, INDIVIDUAL, PER SESSION 04/02/19 17 [facility] SPIROMETRY, INCLUDING GRAPHIC RECORD, TOTAL AND TIMED VITAL CAPACITY, EXPIRATORY FLOW RATE MEASUREMENT(S), WITH OR WITHOUT MAXIMAL VOLUNTARY VENTILATION 04/02/19 17 [facility] APPLICATION OF A MODALITY TO 1 OR MORE AREAS; ELECTRICAL STIMULATION (MANUAL), EACH 15 MINUTES 12/08/19 16 [facility] APPLICATION OF A MODALITY TO 1 OR MORE AREAS; ELECTRICAL STIMULATION (MANUAL), EACH 15 MINUTES 12/03/19 16 [facility] APPLICATION OF A MODALITY TO 1 OR MORE AREAS; ELECTRICAL STIMULATION (MANUAL), EACH 15 MINUTES 11/24/19 16 [facility] APPLICATION OF A MODALITY TO 1 OR MORE AREAS; HOT OR COLD PACKS 11/19/19 16 [facility] APPLICATION OF A MODALITY TO 1 OR MORE AREAS; ELECTRICAL STIMULATION (MANUAL), EACH 15 MINUTES 10/15/19 16 [facility] THERAPEUTIC PROCEDURE, 1 OR MORE AREAS, EACH 15 MINUTES; THERAPEUTIC EXERCISES TO DEVELOP STRENGTH AND ENDURANCE, RANGE OF MOTION AND FLEXIBILITY 10/13/19 16 [facility] THERAPEUTIC PROCEDURE, 1 OR MORE AREAS, EACH 15 MINUTES; THERAPEUTIC EXERCISES TO DEVELOP STRENGTH AND ENDURANCE, RANGE OF MOTION AND FLEXIBILITY 10/09/19 16 [facility] APPLICATION OF A MODALITY TO 1 OR MORE AREAS; ELECTRICAL STIMULATION (MANUAL), EACH 15 MINUTES 10/06/19 16 [facility] APPLICATION OF A MODALITY TO 1 OR MORE AREAS; HOT OR COLD PACKS 10/01/19 16 [facility] APPLICATION OF A MODALITY TO 1 OR MORE AREAS; ELECTRICAL STIMULATION (MANUAL), EACH 15 MINUTES 09/29/19 16 [facility] APPLICATION OF A MODALITY TO 1 OR MORE AREAS; ELECTRICAL STIMULATION (MANUAL), EACH 15 MINUTES 09/24/19 16 [facility] MANUAL THERAPY TECHNIQUES (EG, MOBILIZATION/ MANIPULATION, MANUAL LYMPHATIC DRAINAGE, MANUAL TRACTION), 1 OR MORE REGIONS, EACH 15 MINUTES 09/22/19 16 [facility] MANUAL THERAPY TECHNIQUES (EG, MOBILIZATION/ MANIPULATION, MANUAL LYMPHATIC DRAINAGE, MANUAL TRACTION), 1 OR MORE REGIONS, EACH 15 MINUTES 09/19/19 16 [facility] EAR MOLD/INSERT, DISPOSABLE, ANY TYPE 04/11/19 16 [facility] SCREENING TEST OF VISUAL ACUITY, QUANTITATIVE, BILATERAL 04/11/19 16 [facility] PATIENT EDUCATION, NOT OTHERWISE CLASSIFIED, NON-PHYSICIAN PROVIDER, INDIVIDUAL, PER SESSION 03/08/19 15 [facility] COLOR VISION EXAMINATION, EXTENDED, EG, ANOMALOSCOPE OR EQUIVALENT 03/30/19 14 [facility] EAR MOLD/INSERT, DISPOSABLE, ANY TYPE 04/14/19 13 [facility] EAR MOLD/INSERT, DISPOSABLE, ANY TYPE 08/26/19 12 [facility] PATIENT EDUCATION, NOT OTHERWISE CLASSIFIED, NON-PHYSICIAN PROVIDER, INDIVIDUAL, PER SESSION 06/23/19 12 [facility] PATIENT EDUCATION, NOT OTHERWISE CLASSIFIED, NON-PHYSICIAN PROVIDER, INDIVIDUAL, PER SESSION 07/23/19 11 [facility] PATIENT EDUCATION, NOT OTHERWISE CLASSIFIED, NON-PHYSICIAN PROVIDER, INDIVIDUAL, PER SESSION 06/18/19 10 [facility] Social History Combined list of available smoking, tobacco, and other social history from [facility] facilities. Social History Type Response Date Comment Sourc e Tobacco smoking status NHIS [facility]-TOBACCO FORMER USER 07/31/2020 [facility] History of tobacco use NM-TOBACCO QUIT 1 5 YRS OR MORE 07/31/2020 [facility] Female 11[facility]14/2019 [facility] Sexual Orientation [facility] Gender identity [facility] This section is an empty social history section. [facility] Assessment and Plan Combined list of future care activities from [facility] facilities (e.g., assessment and plan notes, appointments, orders, and referrals). Additional future care activities may be listed in the Plan of Care section. Result Assessment and Plan Date Source Assessment and Plan No data available for this section 01/31/2024 [facility] Functional Status Combined list of recent functional and cognitive assessments recorded at [facility] ([place]).NM Functional [place] Measurement (FIM) Scale: 1 = Total Assistance (Subject = 0% +), 2 = Maximal Assistance (Subject = 25% +), 3 = Moderate Assistance (Subject = 50% +), 4 = Minimal Assistance (Subject = 75% +), 5 = Supervision, 6 = Modified [place] (Device), 7 = Complete [place] (Timely, Safely). Assessment Date/Time Source Assessment Type Assessment Skill Assessment Score Assessment Details FUNCTIONAL 4Home Dietary Supplements Captured Yes
== END 2024-01-25 08:57 | disposition home or self-care (01) ==
LOC: HO.NEURO 08:56
PROVIDERS: PCP Internal Medicine; Visit Provider Student in an Organized Health Care Education/Training Program
DX: R20.0 Anesthesia of skin (principal); R20.2 Paresthesia of skin
CPT/HCPCS: 95886; 95909

== ENCOUNTER → 2024-01-25 08:58 | Outpatient (BNV) | payer OTHER, SELFPAY | PROVIDERS: PCP Internal Medicine; Visit Provider Physical Medicine & Rehabilitation | DX: R20.0 Anesthesia of skin (principal); R20.2 Paresthesia of skin | CPT/HCPCS: 95886; 95909 ==